=== PATIENT | female | born 1995 | race Hispanic/Latino ===

== ENCOUNTER 2019-10-12 19:55 | Emergency (ER) | payer OTHER ==
[2019-10-12] MEDS ORDERED: ONDANSETRON ODT 4 MG TAB ONE (20:22)
[2019-10-12 20:45] LABS: BASOPHILS % (AUTO) 0.3 % (0.0-5.0); EOSINOPHILS % (AUTO) 0.8 % (0.0-8.0); HEMATOCRIT 35.7 % (36-48); LYMPHOCYTES % (AUTO) 18.1 % (21.0-51.0); MEAN CORPUSCULAR HEMOGLOBIN 26.4 pg (27.0-33.0); MEAN CORPUSCULAR HGB CONC 33.1 g/dL (32.0-36.0); MEAN CORPUSCULAR VOLUME 79.9 fL (79-99); MONOCYTES % (AUTO) 6.8 % (3.0-13.0); NEUTROPHILS % (AUTO) 73.8 % (40.0-77.0); PLATELET COUNT (AUTO) 268 K/uL (130-400); RED BLOOD CELL COUNT(AUTO) 4.47 MIL/uL (4.00-5.50); RED CELL DISTRIBUTION WIDTH 14.9 % (11.0-15.5); WHITE BLOOD COUNT (AUTO) 8.8 K/uL (4.8-10.8)
[2019-10-12 20:46] LABS: APPEARANCE,URINE Cloudy (CLEAR); BILIRUBIN,URINE Small (NEGATIVE); COLOR,URINE Dark Yellow (YELLOW); GLUCOSE, URINE (UA) Negative (NEGATIVE); KETONES,URINE >=160 mg/dL (NEGATIVE); LEUKOCYTE ESTERASE ,URINE Small (NEGATIVE); NITRATE,URINE Negative (NEGATIVE); OCCULT BLOOD,URINE Negative (NEGATIVE); PH,URINE 5.5 (5.0-8.0); PROTEIN,URINE POS 2+ mg/dL (NEGATIVE)
[2019-10-12 20:51] LABS: HCG,QUAL RESULT POSITIVE (NEGATIVE)
[2019-10-12 21:01] LABS: RBC,URINE 0-1 /HPF (0-1); WBC,URINE 26-50 /HPF (0-1)
[2019-10-12 21:02] LABS: BACTERIA,URINE Moderate /HPF (None Seen); COARSE GRANULAR CASTS,URINE 0-2 /LPF (None Seen)
[2019-10-12 21:04] LABS: CREATININE 0.9 mg/dL (0.5-1.5); POTASSIUM 3.2 mmol/L (3.5-5.1)
[2019-10-12 21:10] LABS: ALBUMIN 3.8 g/dL (3.5-5.0); BILIRUBIN,TOTAL 0.9 mg/dL (0.2-1.0); TOTAL PROTEIN, SERUM 9.4 g/dL (6.0-8.3)
[2019-10-12] MEDS ORDERED: ACETAMINOPHEN EXTRA STRENGTH 500 MG TABLET ONE (21:27)
[2019-10-12] MEDS ORDERED: CEPHALEXIN 500 MG CAPSULE ONE (21:29)
== END 2019-10-12 21:34 | disposition home or self-care (01) ==
LOC: EDH 19:55
DX: O23.41 Unspecified infection of urinary tract in pregnancy, first trimester (principal); M54.5 Low back pain; Z3A.09 9 weeks gestation of pregnancy
CPT/HCPCS: 36415; 80053; 81001; 81025; 85025; 87088

== ENCOUNTER 2020-05-01 00:27 | Inpatient (IN) | payer MEDICAID, OTHER ==
[~2020-05-01] VITALS: Ht 149.9 cm; Wt 61.2 kg
[2020-05-01] MEDS ORDERED: POTASSIUM CHLORIDE 20 MEQ ERTAB PO ONE (00:44)
[2020-05-01] MEDS ORDERED: ONDANSETRON ODT 4 MG TAB ONE (02:07)
[2020-05-01] MEDS ORDERED: MORPHINE SULFATE 4 MG/1ML SYG ONE ×2 (02:07→04:00)
[2020-05-01] MEDS ORDERED: ZOSYN 3.375GM+NS 50ML 50 ML IV ONE (02:18)
[2020-05-01] MEDS ORDERED: LACTULOSE 20 GM/30 ML UDCUP PO PRN (02:45)
[2020-05-01] MEDS ORDERED: ONDANSETRON HCL 4 MG/2 ML VIAL IV PRN (02:45)
[2020-05-01] MEDS ORDERED: ACETAMINOPHEN 325 MG TAB PO PRN (02:45)
[2020-05-01] MEDS ORDERED: MORPHINE SULFATE 4 MG/1ML SYG IV PRN (02:45)
[2020-05-01] MEDS: SODIUM CHLORIDE 0.9% 1000ML 1,000 ML IV SCH ×2 (02:45→22:45)
[2020-05-01 02:53] LABS: BASOPHILS % (AUTO) 0.2 % (0.0-5.0); EOSINOPHILS % (AUTO) 2.2 % (0.0-8.0); LYMPHOCYTES % (AUTO) 28.6 % (21.0-51.0); MEAN CORPUSCULAR HEMOGLOBIN 26.6 pg (27.0-33.0); MEAN CORPUSCULAR HGB CONC 33.1 g/dL (32.0-36.0); MEAN CORPUSCULAR VOLUME 80.3 fL (79-99); MONOCYTES % (AUTO) 6.3 % (3.0-13.0); NEUTROPHILS % (AUTO) 62.4 % (40.0-77.0); PLATELET COUNT (AUTO) 225 K/uL (130-400); RED BLOOD CELL COUNT(AUTO) 3.61 MIL/uL (4.00-5.50); RED CELL DISTRIBUTION WIDTH 19.5 % (11.0-15.5); WHITE BLOOD COUNT (AUTO) 8.7 K/uL (4.8-10.8)
[2020-05-01 03:02] LABS: CREATININE 0.7 mg/dL (0.5-1.5); POTASSIUM 3.6 mmol/L (3.5-5.1)
[2020-05-01 03:07] LABS: ALBUMIN 2.4 g/dL (3.5-5.0); BILIRUBIN,TOTAL 0.3 mg/dL (0.2-1.0); TOTAL PROTEIN, SERUM 6.4 g/dL (6.0-8.3)
[2020-05-01] MEDS ORDERED: PHARMACY COMMUNICATION MISC SCH (03:30)
[2020-05-01] MEDS ORDERED: ONDANSETRON HCL 4 MG/2 ML VIAL ONE (04:00)
[2020-05-01 04:40] VITALS: BP 112/61
[2020-05-01] MEDS: ZOSYN 3.375GM+NS 50ML 50 ML IV SCH ×2 (05:00→09:37)
--- NOTE | 2020-05-01 05:00 | NUR ---
PT. ADMITTED FROM ER, ADMISSION ASSESSMENT DONE, 2 HEMORRHOIDS NOTED IN THE RECTUM, ONE IS A SIZE OF A QUARTER AND THE SECOND ONE IS A SIZE OF A ORLIN, BOTH SHINING.
[2020-05-01 07:23] VITALS: BP 117/70
--- NOTE | 2020-05-01 07:30 | NUR ---
ASSESSMENT: RECEIVED RESTING IN BED ON RT SIDE. PT STATES HAS MILD ACHE, BURNING TO HER RECTUM. NOTED LG HEMORRHOIDS, ENCOURAGED TO SIT IN WARM WATER. VERBALIZED UNDERSTANDING.
[2020-05-01] MEDS: FAMOTIDINE/PF 20 MG/2 ML VIAL IV SCH ×2 (09:29→21:02)
--- NOTE | 2020-05-01 10:10 | NUR ---
ASSESSMENT: DR EL HERE AND ASSESSED, RECTUM, EXPLAINED TO PT HAS HEMORRHOIDS AND MADE RECOMMENDATIONS IF NO RELIEF WILL TALK ABOUT POSSIBLE EXCISION. PT AND PT'S MOTHER VERBALIZE UNDERSTANDING AND AGREES WITH POC.
--- NOTE | 2020-05-01 10:24 | NUR ---
HEMORRHOIDS: INSTRUCTED ON SITZ BATH AND UP TO SIT ON WARM WATER.
[2020-05-01] MEDS ORDERED: WITCH HAZEL 1 PAD TP PRN (10:45)
[2020-05-01] MEDS: DOCUSATE SODIUM 100 MG CAP PO SCH ×2 (11:07→21:02)
[2020-05-01] MEDS: HYDROCORTISONE/PRAMOXINE 10 GM FOAM RC PRN ×2 (11:08→21:02)
--- NOTE | 2020-05-01 11:13 | NUR ---
HEMORRHOIDS: STATES FEELS BETTER POST SITZ, APPLIED TUCKS AND PROCTOFOAM TO HEMORRHOIDS.
[2020-05-01 11:32] VITALS: BP 105/65
--- NOTE | 2020-05-01 12:28 | NUR ---
HYGEINE: TOOK SHOWER
[2020-05-01 16:23] VITALS: BP 129/77
--- NOTE | 2020-05-01 16:59 | NUR ---
HEMORRHOIDS: CONT WITH SITZ BATH AND TUCKS, PROCTOFOAM. STATES FEELS MUCH BETTER. RESTING IN BED ON HER SIDE.
[2020-05-01 19:30] VITALS: BP 104/64
--- NOTE | 2020-05-01 19:30 | NUR ---
BOTH HEMORRHOIDS TO RECTUM INTACT,PT. CLAIMED SHE FELT BETTER THAN WHEN SHE CAME TO ER. BEENA BATH ENCOURAGED.
[2020-05-01 23:29] VITALS: BP 101/60
[2020-05-02] MEDS: ACETAMINOPHEN 325 MG TAB PO PRN ×2 (01:23→12:22)
[2020-05-02 03:26] VITALS: BP 110/69
[2020-05-02 06:17] LABS: BASOPHILS % (AUTO) 0.4 % (0.0-5.0); EOSINOPHILS % (AUTO) 3.2 % (0.0-8.0); HEMATOCRIT 34.4 % (36-48); LYMPHOCYTES % (AUTO) 27.7 % (21.0-51.0); MEAN CORPUSCULAR HEMOGLOBIN 25.8 pg (27.0-33.0); MEAN CORPUSCULAR HGB CONC 31.1 g/dL (32.0-36.0); MEAN CORPUSCULAR VOLUME 83.1 fL (79-99); MONOCYTES % (AUTO) 4.4 % (3.0-13.0); NEUTROPHILS % (AUTO) 63.8 % (40.0-77.0); PLATELET COUNT (AUTO) 256 K/uL (130-400); RED BLOOD CELL COUNT(AUTO) 4.14 MIL/uL (4.00-5.50); RED CELL DISTRIBUTION WIDTH 19.8 % (11.0-15.5); WHITE BLOOD COUNT (AUTO) 7.3 K/uL (4.8-10.8)
[2020-05-02 06:30] LABS: CREATININE 0.8 mg/dL (0.5-1.5); POTASSIUM 3.9 mmol/L (3.5-5.1)
[2020-05-02 07:30] VITALS: BP 120/72
--- NOTE | 2020-05-02 09:00 | NUR ---
HEMORRHOIDS INTACT AT THIS TIME. PT DENIED ANY PAIN AT THIS TIME. STATES HAS BEEN USING SITZ BATH NEEDED.
[2020-05-02] MEDS: DOCUSATE SODIUM 100 MG CAP PO SCH (09:29)
[2020-05-02] MEDS: FAMOTIDINE/PF 20 MG/2 ML VIAL IV SCH (09:29)
[2020-05-02 15:52] VITALS: BP 113/63
[2020-05-02 19:42] VITALS: BP 119/68
--- NOTE | 2020-05-02 20:35 | NUR ---
STATUS PATIENT DISCHARGED VIA W/C TO PRIVATE VEHICLE PER SAMMY BAXTER BOARD OPERATOR, PATIENT DENIES ANY CONCERNS Addendum: 05/03/20 at 0408 by ERIKA GERMAN LVN Amended: Links added.
== END 2020-05-02 20:35 | disposition home or self-care (01) | DRG 776 ==
LOC: EDH 00:27 → EDHIP 00:28 → WSH 04:40
PROVIDERS: ADMIT Internal Medicine; ATTEND Internal Medicine
DX: O87.2 Hemorrhoids in the puerperium (principal); O90.89 Other complications of the puerperium, not elsewhere classified; K62.3 Rectal prolapse
CPT/HCPCS: 36415; 80048; 80053; 85025; G0378; J2270; J2405; J2543; J3490; J7030